=== PATIENT | female | born 1995 | race Hispanic/Latino ===

== ENCOUNTER 2019-04-10 17:18 | Emergency (ER) | payer OTHER ==
[~2019-04-10] VITALS: Ht 154.9 cm; Wt 70.8 kg
--- OUTSIDE RECORDS SUMMARY | 2019-04-10 17:21 | XMS REPORT ---
Author [facility] Address Unknown Phone Unavailable Care Team Providers Care Helpdesk Analyst Name Role Phone Unavailable Unavailable Payers Payer Name Policy Type Policy Number Effective Date Expiration Date Problems This patient has no known problems. Allergies, Adverse Reactions, Alerts Allergy Name Allergy Type Status Severity Reaction(s) Onset Date Inactive Date Treating Clinician Comments No Known Allergies DA Active U 2018-12-05 00:00:00 No Known Allergies DA Active U 2018-11-11 00:00:00 No Known Allergies DA Active U 2018-05-10 00:00:00 No Known Allergies DA Active U 2018-02-26 00:00:00 Medications This patient has no known medications. Results Test Description Test Time Test Comments Text Results Atomic Results Result Comments HCG SERUM BETA 2018-12-05 15:14:00 HCG SERUM BETA (test code=HCG) 85248.0 mIU/mL 0-3 Interfering substances present in the serum of somepatients may cause a false-positive result in this assay.Questionable elevations in serum hCG should be confirmedwith a urine hCG. Suspected Trophoblastic Neoplasms shouldnot be diagnosed based on serun hCG/beta hCG alone. Theymust be confirmed by clinical history and tissue diagnosis.INTERPRETATION:B-HCG LEVELS <5 SHOULD BE CONSIDERED "NEGATIVE." *WHEN BODERLINE RESULTS ARE ENCOUNTERED,PATIENT SAMPLESSHOULD BE REDRAWN 48 HOURS. 0-1 WEEKS AFTER CONCEPTION 5-50 MIU/ML1-2 WEEKS AFTER CONCEPTION 50-500 MIU/ML2-3 WEEKS AFTER CONCEPTION 100 -5,000 MIU/ML3-4 WEEKS AFTER CONCEPTION 500-10,000 MIU/ML4-5 WEEKS AFTER CONCEPTION 1000 -50,000 MIU/ML5-6 WEEKS AFTER CONCEPTION 10,000-100,000 MIU/ML6-8 WEEKS AFTER CONCEPTION 15,000- 200,000 MIU/ML2-3 MONTHS AFTER CONCEPTION 10,000-100,000 MIU/ML URINALYSIS [id number] 15:10:00* Test Item Value Reference Range Comments UA COLOR (test code=COLU) YELLOW YELLOW UA APPEARANCE (test code=APPU) CLEAR CLEAR UA GLUCOSE DIPSTICK (test code=DGLUU) NEGATIVE mg/dL NEGATIVE UA BILIRUBIN DIPSTICK (test code=BILU) NEGATIVE mg/dL NEGATIVE UA KETONE DIPSTICK (test code=KETU) >150 (4+) mg/dL NEGATIVE UA SPECIFIC GRAVITY (test code=SGU) 1.025 1.001-1.035 UA BLOOD DIPSTICK (test code=SALVADOR) Negative mg/dL NEGATIVE UA PH DIPSTICK (test code=BLAISE) 5.5 5.0-8.0 UA PROTEIN DIPSTICK (test code=PROU) NEGATIVE mg/dL NEGATIVE UA UROBILINIOGEN DIPSTICK (test code=URO) 2.0 (1+) mg/dL NEGATIVE UA NITRITE DIPSTICK (test code=KUNAL) NEGATIVE NEGATIVE UA LEUKOCYTE ESTERASE W REFLEX (test code=LEUUR) NEGATIVE Artur/uL NEGATIVE UA WBC (test code=WBCU) 0-5 per HPF 0-5 UA RBC (test code=RBCU) 0-2 #/HPF 0-5 UA EPITHELIAL CELLS (test code=EPIU) FEW per HPF FEW UA BACTERIA (test code=BACU) FEW #/HPF NONE UA MUCUS (test code=MUCU) FEW #/LPF FEW Urine Source? CatheterURINALYSIS [id number] 15:03:00* Test Item Value Reference Range Comments UA COLOR (test code=COLU) YELLOW YELLOW UA APPEARANCE (test code=APPU) CLEAR CLEAR UA GLUCOSE DIPSTICK (test code=DGLUU) NEGATIVE mg/dL NEGATIVE UA BILIRUBIN DIPSTICK (test code=BILU) NEGATIVE mg/dL NEGATIVE UA KETONE DIPSTICK (test code=KETU) >150 (4+) mg/dL NEGATIVE UA SPECIFIC GRAVITY (test code=SGU) 1.025 1.001-1.035 UA BLOOD DIPSTICK (test code=SALVADOR) Negative mg/dL NEGATIVE UA PH DIPSTICK (test code=BLAISE) 5.5 5.0-8.0 UA PROTEIN DIPSTICK (test code=PROU) NEGATIVE mg/dL NEGATIVE UA UROBILINIOGEN DIPSTICK (test code=URO) 2.0 (1+) mg/dL NEGATIVE UA NITRITE DIPSTICK (test code=KUNAL) NEGATIVE NEGATIVE UA LEUKOCYTE ESTERASE W REFLEX (test code=LEUUR) NEGATIVE Artur/uL NEGATIVE UA WBC (test code=WBCU) per HPF 0-5 UA RBC (test code=RBCU) per HPF 0-5 UA EPITHELIAL CELLS (test code=EPIU) per HPF Few UA BACTERIA (test code=BACU) per HPF NONE Urine Source? Catheter- US PREG AFTER [id number] 14:17:00 Name: JOSIAH ALEGRE [facility] : 1995 Age/S: 23 / F [address] Unit #: [id number] Loc: [place] [address] Phys: Cassandra Meyer B PROCESS DEVELOPMENT MANAGER Acct: [id number] Di s Date: Status: REG ER PHONE #: Exam Date: 12/05/2018 [facility] FAX #: Reason: VAGINAL BLEEDING/PELVIC PAIN EXAMS: CPT CODE: [id number] US PREG AFTER TRI 18912 HISTORY: Vaginal bleeding and pelvic pain. COMPARISON: Ultrasound from November 11, 2018. Transabdominal pelvic ultrasound: Survey of the uterus dem onstrated single live intrauterine gestation in variable position. Cardiac activity documented with average heart rate of 149 beats per minute. Posterior fundal, grade 0 placenta without previa or retroplacental hemorrhage. Cervical length of 3.5 cm. Normal amniotic fluid volume. Biometry: BPD=2.8 cm=15 week 0 day +/- 1 week. HC=10.5 cm=15 week 0 day +/- 1 week. AC=8.8 cm=15 week 0 day +/- 1 week. FL=1.6 cm=14 weeks 6 days +/- 1 week. CI=75.3. HC/AC=1.2. FL/HC=15.6. Using this criteria the gestation al age was calculated to 15 week 0 day +/- 1 week. EFW of 11 0 g or 4 ounces which is within the 44th percentile. BRUCE of Novemb 2015. BRUCE by previous ultrasound of June 01, 2019. detail is not available on this exam. IMPRESSION: Single live intrauterine gestation in variable position at 15 weeks 0 day +/- 1 week. Fetus has demonstrated appropriate interval growth from previous exam. BRUCE of May 29, 2019. EFW of 110 g or 4 ounces which is within the 44th percentile. Fundal posterior, grade 0 placenta without previa or retroplacental hemorrhage. Normal amniotic fluid volume. detail is not available. PAGE 1 Signed Report (CONTINUED) Name: JOSIAH ALEGRE [facility] : 1995 Age/S: 23 / F [address] Unit #: [id number] Loc: [place] [address] Phys: Jeovanny Meyer NP Acct: [id number] Dis Date: tus: REG ER PHONE #: [phone] Exam Date : 12/05/2018 1359 FAX #: [phone] Reason: VAGINAL BLEEDING/PELVIC PAIN EXAMS: CPT CODE: [id number] US PREG AFTER TRI [id number] <Continued> at 1417 Reported and signed by: Hawk Stone M.D. CC: Jeovanny Meyer NP; Liborio Duff DO Technologist: Radha العراقي RT(S), ELVIRA Trnilb Date/Time: 12/05/2018 (1417) [email or web address] Orig Print D/T: S: 12/05/2018 (4486) Probe: PAGE 2 Signed Report URINALYSIS [id number] 13:26:00* Test Item Value Reference Range Comments UA COLOR (test code=COLU) YELLOW YELLOW UA APPEARANCE (test code=APPU) Cloudy CLEAR UA GLUCOSE DIPSTICK (test code=DGLUU) NEGATIVE mg/dL NEGATIVE UA BILIRUBIN DIPSTICK (test code=BILU) NEGATIVE mg/dL NEGATIVE UA KETONE DIPSTICK (test code=KETU) 60 (2+) mg/dL NEGATIVE UA SPECIFIC GRAVITY (test code=SGU) 1.029 1.001-1.035 UA BLOOD DIPSTICK (test code=SALVADOR) Negative mg/dL NEGATIVE UA PH DIPSTICK (test code=BLAISE) 5.5 5.0-8.0 UA PROTEIN DIPSTICK (test code=PROU) 20 (Trace) mg/dL NEGATIVE UA UROBILINIOGEN DIPSTICK (test code=URO) Normal mg/dL NEGATIVE UA NITRITE DIPSTICK (test code=KUNAL) NEGATIVE NEGATIVE UA LEUKOCYTE ESTERASE W REFLEX (test code=LEUUR) 250 Artur/uL (2+) Artur/uL NEGATIVE UA WBC (test code=WBCU) 10-20 per HPF 0-5 UA RBC (test code=RBCU) 0-2 #/HPF 0-5 UA EPITHELIAL CELLS (test code=EPIU) MOD per HPF FEW UA BACTERIA (test code=BACU) FEW #/HPF NONE UA MUCUS (test code=MUCU) FEW #/LPF FEW Urine Source? Clean CatchBASIC METABOLIC [id number] 12:49:00* Test Item Value Reference Range Comments SODIUM (test code=NA) 138 mmol/L 136-145 POTASSIUM (test code=K) 3.6 mmol/L 3.5-5.1 CHLORIDE (test code=CL) 107.0 mmol/L 98-107 CARBON DIOXIDE (test code=CO2) 23.0 mmol/L 21-32 ANION GAP (test code=GAP) 11.6 10-20 GLUCOSE (test code=GLU) 84 mg/dL 74-106 BLOOD UREA NITROGEN (test code=BUN) 7 mg/dL 7-18 GLOMERULAR FILTRATION RATE (test code=GFR) > 60 mL/min >=60 Estimated GFR by using Modified MDRD formula.Chronic kidney disease is defined as either kidney damageor GFR <60 mL/min/1.73 m2 for >3 months. CREATININE (test code=CREAT) 0.50 mg/dL 0.55-1.02 Note change in reference range due to change in reagent. BUN/CREATININE RATIO (test code=BUN/CREA) 14.0 10-20 CALCIUM (test code=CA) 8.7 mg/dL 8.5-10.1 HEPATIC FUNCTION [id number] 12:49:00* Test Item Value Reference Range Comments TOTAL PROTEIN (test code=PROT) 7.2 gram/dL 6.4-8.2 ALBUMIN (test code=ALB) 3.2 g/dL 3.4-5.0 GLOBULIN (test code=GLOB) 4.0 gram/dL 2.7-4.2 ALBUMIN/GLOBULIN RATIO (test code=A/G) 0.8 0.75-1.50 BILIRUBIN TOTAL (test code=BILT) 0.60 mg/dL 0.0-1.0 BILIRUBIN DIRECT (test code=BILD) 0.15 mg/dL 0.0-0.20 SGOT/AST (test code=AST) 22 IUnit/L 15-37 SGPT/ALT (test code=ALT) 36 IUnit/L 12-78 ALKALINE PHOSPHATASE TOTAL (test code=ALKP) 62 IUnit/L 45-117 Note change in reference range due to change in reagent. [id number] 12:49:00* Test Item Value Reference Range Comments LIPASE (test code=LIP) 224 U/L 73.0-393.0 BASIC METABOLIC [id number] 12:40:00* Test Item Value Reference Range Comments SODIUM (test code=NA) 138 mmol/L 136-145 POTASSIUM (test code=K) 3.6 mmol/L 3.5-5.1 CHLORIDE (test code=CL) 107.0 mmol/L 98-107 CARBON DIOXIDE (test code=CO2) mmol/L 21-32 ANION GAP (test code=GAP) 10-20 GLUCOSE (test code=GLU) mg/dL 74-106 BLOOD UREA NITROGEN (test code=BUN) mg/dL 7-18 GLOMERULAR FILTRATION RATE (test code=GFR) mL/min >=60 CREATININE (test code=CREAT) mg/dL 0.55-1.02 BUN/CREATININE RATIO (test code=BUN/CREA) 10-20 CALCIUM (test code=CA) mg/dL 8.5-10.1 HEPATIC FUNCTION [id number] 12:40:00* Test Item Value Reference Range Comments TOTAL PROTEIN (test code=PROT) gram/dL 6.4-8.2 ALBUMIN (test code=ALB) g/dL 3.4-5.0 GLOBULIN (test code=GLOB) gram/dL 2.7-4.2 ALBUMIN/GLOBULIN RATIO (test code=A/G) 0.75-1.50 BILIRUBIN TOTAL (test code=BILT) mg/dL 0.0-1.0 BILIRUBIN DIRECT (test code=BILD) mg/dL 0.0-0.20 SGOT/AST (test code=AST) IUnit/L 15-37 SGPT/ALT (test code=ALT) IUnit/L 12-78 ALKALINE PHOSPHATASE TOTAL (test code=ALKP) IUnit/L 45-117 [id number] 12:40:00* Test Item Value Reference Range Comments LIPASE (test code=LIP) U/L 73.0-393.0 CBC W/O [id number] 12:36:00* Test Item Value Reference Range Comments WHITE BLOOD CELL (test code=WBC) 7.9 K/mm3 4.5-12.5 RED BLOOD CELL (test code=RBC) 4.37 mill/mm3 3.7-5.2 HEMOGLOBIN (test code=HGB) 13.2 gram/dL 11.5-15.5 HEMATOCRIT (test code=HCT) 39.7 % 36.0-46.0 MEAN CELL VOLUME (test code=MCV) 90.8 fL 80-98 MEAN CELL HGB (test code=MCH) 30.2 picogram 27.0-33.0 MEAN CELL HGB CONCETRATION (test code=MCHC) 33.2 gram/dL 33.0-36.0 RED CELL DISTRIBUTION WIDTH (test code=RDW) 13.2 % 11.6-16.2 PLATELET COUNT (test code=PLT) 160 K/mm3 150-450 MEAN PLATELET VOLUME (test code=MPV) 11.4 fL 6.7-11.0 CBC W/O [id number] 12:35:00* Test Item Value Reference Range Comments WHITE BLOOD CELL (test code=WBC) K/mm3 4.5-12.5 RED BLOOD CELL (test code=RBC) mill/mm3 3.7-5.2 HEMOGLOBIN (test code=HGB) 13.2 gram/dL 11.5-15.5 HEMATOCRIT (test code=HCT) 39.7 % 36.0-46.0 MEAN CELL VOLUME (test code=MCV) fL 80-98 MEAN CELL HGB (test code=MCH) picogram 27.0-33.0 MEAN CELL HGB CONCETRATION (test code=MCHC) gram/dL 33.0-36.0 RED CELL DISTRIBUTION WIDTH (test code=RDW) % 11.6-16.2 PLATELET COUNT (test code=PLT) K/mm3 150-450 MEAN PLATELET VOLUME (test code=MPV) fL 6.7-11.0 URINALYSIS [id number] 20:02:00* Test Item Value Reference Range Comments UA COLOR (test code=COLU) YELLOW YELLOW UA APPEARANCE (test code=APPU) CLEAR CLEAR UA GLUCOSE DIPSTICK (test code=DGLUU) NEGATIVE mg/dL NEGATIVE UA BILIRUBIN DIPSTICK (test code=BILU) NEGATIVE mg/dL NEGATIVE UA KETONE DIPSTICK (test code=KETU) >150 (4+) mg/dL NEGATIVE UA SPECIFIC GRAVITY (test code=SGU) 1.031 1.001-1.035 UA BLOOD DIPSTICK (test code=SALVADOR) 0.5 mg/dL (2+) mg/dL NEGATIVE UA PH DIPSTICK (test code=BLAISE) 5.5 5.0-8.0 UA PROTEIN DIPSTICK (test code=PROU) 30 (1+) mg/dL NEGATIVE UA UROBILINIOGEN DIPSTICK (test code=URO) Normal mg/dL NEGATIVE UA NITRITE DIPSTICK (test code=KUNAL) NEGATIVE NEGATIVE UA LEUKOCYTE ESTERASE W REFLEX (test code=LEUUR) NEGATIVE Artur/uL NEGATIVE UA WBC (test code=WBCU) 6-10 per HPF 0-5 UA RBC (test code=RBCU) 6-10 #/HPF 0-5 UA EPITHELIAL CELLS (test code=EPIU) FEW per HPF FEW UA BACTERIA (test code=BACU) FEW #/HPF NONE UA MUCUS (test code=MUCU) FEW #/LPF FEW Urine Source? Clean CatchURINALYSIS [id number] 20:01:00* Test Item Value Reference Range Comments UA COLOR (test code=COLU) YELLOW YELLOW UA APPEARANCE (test code=APPU) CLEAR CLEAR UA GLUCOSE DIPSTICK (test code=DGLUU) NEGATIVE mg/dL NEGATIVE UA BILIRUBIN DIPSTICK (test code=BILU) NEGATIVE mg/dL NEGATIVE UA KETONE DIPSTICK (test code=KETU) >150 (4+) mg/dL NEGATIVE UA SPECIFIC GRAVITY (test code=SGU) 1.031 1.001-1.035 UA BLOOD DIPSTICK (test code=SALVADOR) 0.5 mg/dL (2+) mg/dL NEGATIVE UA PH DIPSTICK (test code=BLAISE) 5.5 5.0-8.0 UA PROTEIN DIPSTICK (test code=PROU) 30 (1+) mg/dL NEGATIVE UA UROBILINIOGEN DIPSTICK (test code=URO) Normal mg/dL NEGATIVE UA NITRITE DIPSTICK (test code=KUNAL) NEGATIVE NEGATIVE UA LEUKOCYTE ESTERASE W REFLEX (test code=LEUUR) NEGATIVE Artur/uL NEGATIVE UA WBC (test code=WBCU) per HPF 0-5 UA RBC (test code=RBCU) per HPF 0-5 UA EPITHELIAL CELLS (test code=EPIU) per HPF Few UA BACTERIA (test code=BACU) per HPF NONE Urine Source? Clean Catch- DUP AB/PEL/SC [id number] 18:44:00 Name: JOSIAH ALEGRE [facility] : 1995 Age/S: 23 / F [address] Unit #: [id number] Loc: [place] [address] Phys: Linda Mace NP Acct: [id number] Di s Date: Status: REG ER PHONE #: Exam Date: 11/11/2018 1809 FAX #: [phone] Reason: PELVIC PAIN EXAMS: CPT CODE: [id number] DUP AB/PEL/SC COMP 36323 HISTORY: Vaginal bleeding and pelvic pain. COMPARISON: ultrasound from October 14, 2018. Transabdominal pelvic ultrasound with color Doppler flow and grayscale imaging. Anteverted uterus measured 11.3 x 7.3 x 9.6 cm. Intrauterine gestational sac with pole and cardiac activity documented at 160 beats per minutes. No subchorionic hemorrhage is visibl e. [place]-rump length of 4.4 cm=11 weeks 1 day +/- week. BRUCE of June 01, 2019. BRUCE by prior ultrasound of June 01 2019. Fetus has demonstrated appropriate interval growth from previous exam. Color and Doppler flow with normal spectral waveform laterally. R ight ovary measuring 2.4 x 1.9 x 2.1 cm. Left ovary measuring 3.2 x 2.1 x 1.7 cm with corpus luteum lesion measuring 1.8 cm. No free fluid. IMPRESSION: IUP at 11 weeks 1 day +/- week. Fetus has demonstrated appropriate interval growth from October 14, 2018. No sub chorionic hemorrhage. BRUCE of June 01, 2019. Normal ovaries with co laina Doppler flow. Electronically Signed by Leora Stone on 11/01 at 1844 Reported and signed by: Velma Anthony CC: Maria Dolores Mace NP Techn ologist: [facility] Date/Time : 11/11/2018 (1843) [email or web address] Orig Print D/T: S: 11/12/19 19 (1846) Probe: PAGE 1 Signed Report - US PREG 1ST [id number] 18:44:00 Name: JOSIAH ALEGRE [facility] : 1995 Age/S: 23 / F [address] Unit #: [id number] Loc: [place] [address] Phys: Linda Mace NP Acct: [id number] Di s Date: Status: REG ER PHONE #: Exam Date: 11/11/2018 1800 FAX #: Reason: VAGINAL BLEEDING/PELVIC PAIN EXAMS: CPT CODE: [id number] US PREG 1ST T RIMTR 11900 HISTORY: Vaginal bleeding and pelvic pain. COMPARISON: ultrasound from October 14, 2018. Transabdominal pelvic ultrasound with color Doppler flow and grayscale imaging. Anteverted uterus measured 11.3 x 7.3 x 9.6 cm. Intrauterine gestational sac with pole and cardiac activity documented at 160 beats per minutes. No subchorionic hemorrhage is visibl e. [place]-rump length of 4.4 cm=11 weeks 1 day +/- week. BRUCE of June 01, 2019. BRUCE by prior ultrasound of June 01 2019. Fetus has demonstrated appropriate interval growth from previous exam. Color and Doppler flow with normal spectral waveform laterally. R ight ovary measuring 2.4 x 1.9 x 2.1 cm. Left ovary measuring 3.2 x 2.1 x 1.7 cm with corpus luteum lesion measuring 1.8 cm. No free fluid. IMPRESSION: IUP at 11 weeks 1 day +/- week. Fetus has demonstrated appropriate interval growth from October 14, 2018. No sub chorionic hemorrhage. BRUCE of June 01, 2019. Normal ovaries with co laina Doppler flow. Electronically Signed by Leora Stone on 11/01 at 1844 Reported and signed by: Velma Anthony CC: Maria Dolores Mace NP Techn ologist: ESTEVAN JEFFERSON Trnscb Date/Time : 11/11/2018 (1843) [email or web address] Orig Print D/T: S: 11/12/19 19 (1846) Probe: PAGE 1 Signed Report BASIC METABOLIC [id number] 18:20:00* Test Item Value Reference Range Comments SODIUM (test code=NA) 137 mmol/L 136-145 POTASSIUM (test code=K) 3.2 mmol/L 3.5-5.1 CHLORIDE (test code=CL) 105.0 mmol/L 98-107 CARBON DIOXIDE (test code=CO2) 23.0 mmol/L 21-32 ANION GAP (test code=GAP) 12.2 10-20 GLUCOSE (test code=GLU) 86 mg/dL 74-106 BLOOD UREA NITROGEN (test code=BUN) 7 mg/dL 7-18 GLOMERULAR FILTRATION RATE (test code=GFR) > 60 mL/min >=60 Estimated GFR by using Modified MDRD formula.Chronic kidney disease is defined as either kidney damageor GFR <60 mL/min/1.73 m2 for >3 months. CREATININE (test code=CREAT) 0.40 mg/dL 0.55-1.02 Note change in reference range due to change in reagent. BUN/CREATININE RATIO (test code=BUN/CREA) 17.5 10-20 CALCIUM (test code=CA) 8.7 mg/dL 8.5-10.1 HCG SERUM [id number] 18:20:00* Test Item Value Reference Range Comments HCG SERUM BETA (test code=HCG) 05367.0 mIU/mL 0-3 Interfering substances present in the serum of somepatients may cause a false-positive result in this assay.Questionable elevations in serum hCG should be confirmedwith a urine hCG. Suspected Trophoblastic Neoplasms shouldnot be diagnosed based on serun hCG/beta hCG alone. Theymust be confirmed by clinical history and tissue diagnosis.INTERPRETATION:B-HCG LEVELS <5 SHOULD BE CONSIDERED "NEGATIVE." *WHEN BODERLINE RESULTS ARE ENCOUNTERED,PATIENT SAMPLESSHOULD BE REDRAWN 48 HOURS. 0-1 WEEKS AFTER CONCEPTION 5-50 MIU/ML1-2 WEEKS AFTER CONCEPTION 50-500 MIU/ML2-3 WEEKS AFTER CONCEPTION 100 -5,000 MIU/ML3-4 WEEKS AFTER CONCEPTION 500-10,000 MIU/ML4-5 WEEKS AFTER CONCEPTION 1000 -50,000 MIU/ML5-6 WEEKS AFTER CONCEPTION 10,000-100,000 MIU/ML6-8 WEEKS AFTER CONCEPTION 15,000- 200,000 MIU/ML2-3 MONTHS AFTER CONCEPTION 10,000-100,000 MIU/ML BASIC METABOLIC [id number] 17:56:00* Test Item Value Reference Range Comments SODIUM (test code=NA) 137 mmol/L 136-145 POTASSIUM (test code=K) 3.2 mmol/L 3.5-5.1 CHLORIDE (test code=CL) 105.0 mmol/L 98-107 CARBON DIOXIDE (test code=CO2) mmol/L 21-32 ANION GAP (test code=GAP) 10-20 GLUCOSE (test code=GLU) mg/dL 74-106 BLOOD UREA NITROGEN (test code=BUN) mg/dL 7-18 GLOMERULAR FILTRATION RATE (test code=GFR) mL/min >=60 CREATININE (test code=CREAT) mg/dL 0.55-1.02 BUN/CREATININE RATIO (test code=BUN/CREA) 10-20 CALCIUM (test code=CA) mg/dL 8.5-10.1 HCG SERUM [id number] 17:56:00* Test Item Value Reference Range Comments HCG SERUM BETA (test code=HCG) mIU/mL 0-3 CBC W/O [id number] 17:44:00* Test Item Value Reference Range Comments WHITE BLOOD CELL (test code=WBC) K/mm3 4.5-12.5 RED BLOOD CELL (test code=RBC) mill/mm3 3.7-5.2 HEMOGLOBIN (test code=HGB) 13.1 gram/dL 11.5-15.5 HEMATOCRIT (test code=HCT) 38.9 % 36.0-46.0 MEAN CELL VOLUME (test code=MCV) fL 80-98 MEAN CELL HGB (test code=MCH) picogram 27.0-33.0 MEAN CELL HGB CONCETRATION (test code=MCHC) gram/dL 33.0-36.0 RED CELL DISTRIBUTION WIDTH (test code=RDW) % 11.6-16.2 PLATELET COUNT (test code=PLT) K/mm3 150-450 MEAN PLATELET VOLUME (test code=MPV) fL 6.7-11.0 CBC W/O [id number] 17:44:00* Test Item Value Reference Range Comments WHITE BLOOD CELL (test code=WBC) 11.0 K/mm3 4.5-12.5 RED BLOOD CELL (test code=RBC) 4.39 mill/mm3 3.7-5.2 HEMOGLOBIN (test code=HGB) 13.1 gram/dL 11.5-15.5 HEMATOCRIT (test code=HCT) 38.9 % 36.0-46.0 MEAN CELL VOLUME (test code=MCV) 88.6 fL 80-98 MEAN CELL HGB (test code=MCH) 29.8 picogram 27.0-33.0 MEAN CELL HGB CONCETRATION (test code=MCHC) 33.7 gram/dL 33.0-36.0 RED CELL DISTRIBUTION WIDTH (test code=RDW) 12.5 % 11.6-16.2 PLATELET COUNT (test code=PLT) 242 K/mm3 150-450 MEAN PLATELET VOLUME (test code=MPV) 11.5 fL 6.7-11.0 - ABDOMEN [id number] 15:59:00 Name: CODEYJOSIAH HAILEY [facility] : 1995 Age/S: 23 / F [address] [place] [address] Unit #: [id number] Loc: [place] [address] Phys: Gary Moreno JOHN Acct: [id number] Dis Date: Status: REG ER PHONE #: [phone] Exam Date: 10/26/2018 1534 FAX #: [phone] Reason: abdominal pain, vomiting, history of cholelithi EXAMS: CPT CODE: [id number] ABDOMEN LTD 21733 PROCEDURE: RIGHT UPPER QUADRANT ULTRASOUND INDICATION: abdominal pain, vomiting, history of cholelithiasis 23-year-old female, 9 weeks COMPARISON: May 2018 TECHNIQUE: Sonographic evaluation of the right upper quadrant was performed with supplemental color and pulsed Doppler. Limitations: Bowel gas shadowing. FINDINGS: LIVER: The liver is diffusely increased in echogenicity with slight coarsened echotexture. Nonmasslike areas of decreased echogenicity adjacent to the gallbladder fossa compatible with focal sparing. Small circumscribed relatively hypoechoic focus in the anterior right lobe measuring 1.9 x 1.7 x 1.5 cm. No internal vascularity. Lesion size and appearance grossly stable from prior examination within limitations of this muck operator dependent exam. H epatopedal flow in the main portal vein. GALLBLADDER: Multip le shadowing gallstones within contracted gallbladder. Contracted state p recluding accurate assessment of wall thickness. No gross pericholecystic fluid. No tenderness to transducer pressure. BILE DUCTS: No biliary dilatation. The common duct measures 4 mm. PANCREAS: Th e visualized pancreas appears normal. RIGHT KIDNEY: The right kidn ey measures 10.6 cm in length. Normal renal contour and morphology with no rmal echogenicity. There is no hydronephrosis. Additional co mments: No free intraperitoneal fluid. IMPRESSION: 1. Cholelithiasis within contracted gallbladder. No definitive sonographic evidence for acute cholecystitis. 2. Hepatic steatosis with areas of f ocal sparing. 3. Small right lobe liver lesion mildly hypoechoic in a b ackground of hepatic steatosis. Stability and age of the patient favori ng benign lesion, likely hemangioma. If not previously performed, [facility] imaging options would include nonemergent MRI after completion of the patient's . PAGE 1 Signed Report (CONTINUED) Name: CODEYJOSIAH [facility] : 1995 Age/S: 23 / F [address] [facility] Unit #: [id number] Loc: ELIZABETH Hernandez [address] Phys: Gary Moreno Acct: [id number] Dis Date: Status: REG ER PHONE #: [phone] Exam Date: 10/26/2018 1534 FAX #: [phone] Reason: abdominal pain, vomiting, history of cholelithi EXAMS: CPT CODE: [id number] US ABDOMEN LTD [id number] < Continued> SL: [id number] at 1559 Reported and signed by: Chavo Jimenez M.D. CC: Gary LOPEZ; Baltazar Ochoa MD Technologist: Noy Horton RDMS (AB) (OB) Trnscb Date/Time: 10/26/2018 (6916) [email or web address] Orig Print D/T: S: 10/26/2018 (8247) Probe: PAGE 2 Signed Report BASIC METABOLIC [id number] 14:57:00* Test Item Value Reference Range Comments SODIUM (test code=NA) 138 mEq/L 134-147 POTASSIUM (test code=K) 3.8 mEq/L 3.4-5.0 CHLORIDE (test code=CL) 108 mEq/L 100-108 CARBON DIOXIDE (test code=CO2) 24 mEq/L 21-33 ANION GAP (test code=GAP) 10 0-20 GLUCOSE (test code=GLU) 80 mg/dL 70-110 BLOOD UREA NITROGEN (test code=BUN) 7 mg/dL 7-18 GLOMERULAR FILTRATION RATE (test code=GFR) 154.3 110-120 Units of measure=ml/min/1.73 m2 CREATININE (test code=CREAT) 0.5 mg/dL 0.6-1.3 CALCIUM (test code=CA) 8.7 mg/dL 8.0-10.5 Is patient ? YHOW MANY WEEKS? 9 WEEKSHEPATIC FUNCTION [id number] 14:57:00* Test Item Value Reference Range Comments TOTAL PROTEIN (test code=PROT) 7.3 g/dL 6.4-8.2 ALBUMIN (test code=ALB) 3.30 g/dL 3.4-5.0 BILIRUBIN TOTAL (test code=BILT) 0.30 mg/dL 0.0-1.0 BILIRUBIN DIRECT (test code=BILD) < 0.10 MG/DL 0.0-0.30 BILIRUBIN INDIRECT (test code=BILIND) 0.20 MG/DL SGOT/AST (test code=AST) 39 IUnit/L 15-37 SGPT/ALT (test code=ALT) 90 IUnit/L 15-65 ALKALINE PHOSPHATASE TOTAL (test code=ALKP) 64 IUnit/L 20-125 Is patient ? YHOW MANY WEEKS? 9 [id number] 14:57:00* Test Item Value Reference Range Comments LIPASE (test code=LIP) 212 IUnit/L 73-393 Is patient ? YHOW MANY WEEKS? 9 WEEKSHCG [id number] 14:57:00* Test Item Value Reference Range Comments HCG SERUM (test code=HCG) 62821 0 - 6 NOT > 6 SUGGESTIVE OF EARLY RISES TWO FOLD EVERY 2 DAYS; SUGGEST RE CONFIRMING AFTER 2 DAYS. 150,000-200,[address] TRIMESTER 10,000 - 50,000 2ND & 3RD TRIMESTERResults in dany-International Units/mL Is patient ? YHOW MANY WEEKS? 9 WEEKSPROTHROMBIN [id number] 14:42:00 * Test Item Value Reference Range Comments PROTHROMBIN TIME PATIENT (test code=PTP) 11.9 SECONDS 9.3-12.9 INTERNATIONAL NORMAL RATIO (test code=INR) 1.1 0.8-1.2 TARGET INR BY INDICATION Indication INR1. Prophylaxis of venous thrombosis 2.0 - 3.0 (orthopedic surgery), Prophylaxis of venous thrombosis (other than high-risk surgery), Treatment of Deep Vein Thrombosis/Pulmonary Embolism, Prevention of systemic embolism - Tissue heart valves, Acute Myocardial Infarction (to prevent systemic embolism), Valvular heart disease, Atrial Fibrillation, Bileaflet mechanical valve in aortic position.2. Mechanical prosthetic valves (high risk), 2.5 - 3.5 Presence of Lupus Anticoagulant or Antiphospholipid Antibodies, Prevention of systemic embolism - Acute Myocardial Infarction (to prevent recurrent infarct). THROMBOPLASTIN TIME [id number] 14:42:00* Test Item Value Reference Range Comments THROMBOPLASTIN TIME PARTIAL (test code=PTT) 29.8 Seconds 25.0-39.5 Therapeutic Range: 50.4 - 88.3 Seconds Effective 10/17/2018 BASIC METABOLIC [id number] 14:41:00* Test Item Value Reference Range Comments SODIUM (test code=NA) 138 mEq/L 134-147 POTASSIUM (test code=K) 3.8 mEq/L 3.4-5.0 CHLORIDE (test code=CL) 108 mEq/L 100-108 CARBON DIOXIDE (test code=CO2) 24 mEq/L 21-33 ANION GAP (test code=GAP) 10 0-20 GLUCOSE (test code=GLU) 80 mg/dL 70-110 BLOOD UREA NITROGEN (test code=BUN) 7 mg/dL 7-18 GLOMERULAR FILTRATION RATE (test code=GFR) 154.3 110-120 Units of measure=ml/min/1.73 m2 CREATININE (test code=CREAT) 0.5 mg/dL 0.6-1.3 CALCIUM (test code=CA) 8.7 mg/dL 8.0-10.5 Is patient ? YHOW MANY WEEKS? 9 HEPATIC FUNCTION [id number] 14:41:00* Test Item Value Reference Range Comments TOTAL PROTEIN (test code=PROT) g/dL 6.4-8.2 ALBUMIN (test code=ALB) 3.30 g/dL 3.4-5.0 BILIRUBIN TOTAL (test code=BILT) mg/dL 0.0-1.0 BILIRUBIN DIRECT (test code=BILD) < 0.10 MG/DL 0.0-0.30 SGOT/AST (test code=AST) IUnit/L 15-37 SGPT/ALT (test code=ALT) 90 IUnit/L 15-65 ALKALINE PHOSPHATASE TOTAL (test code=ALKP) IUnit/L 20-125 Is patient ? YHOW MANY WEEKS? 9 [id number] 14:41:00* Test Item Value Reference Range Comments LIPASE (test code=LIP) 212 IUnit/L 73-393 Is patient ? YHOW MANY WEEKS? 9 WEEKSHCG [id number] 14:41:00* Test Item Value Reference Range Comments HCG SERUM (test code=HCG) Is patient ? YHOW MANY WEEKS? 9 WEEKSURINALYSIS [id number] 14:28:00* Test Item Value Reference Range Comments UA COLOR (test code=COLU) YELLOW YEL/STRAW UA APPEARANCE (test code=APPU) CLEAR CLEAR UA GLUCOSE DIPSTICK (test code=DGLUU) NEGATIVE NEGATIVE UA BILIRUBIN DIPSTICK (test code=BILU) NEGATIVE NEGATIVE UA KETONE DIPSTICK (test code=KETU) NEGATIVE NEGATIVE UA SPECIFIC GRAVITY (test code=SGU) 1.024 1.005-1.030 UA BLOOD DIPSTICK (test code=SALVADOR) NEGATIVE NEGATIVE UA PH DIPSTICK (test code=BLAISE) 8.0 5.0-7.0 UA PROTEIN DIPSTICK (test code=PROU) NEGATIVE NEGATIVE UA UROBILINIOGEN DIPSTICK (test code=URO) 2.0 mg/dL 0.2-1.0 UA NITRITE DIPSTICK (test code=KUNAL) NEGATIVE NEGATIVE UA LEUKOCYTE ESTERASE DIPSTICK (test code=LEUU) NEGATIVE NEGATIVE UA WBC (test code=WBCU) 0-3 WBC/HPF 0-3 UA RBC (test code=RBCU) 4-10 RBC/HPF 0-3 UA BACTERIA (test code=BACU) NONE SEEN /HPF NONE SEEN UA SQUAMOUS CELLS (test code=SQU) 0-5 /HPF NONE SEEN UA MUCUS (test code=MUCU) 2+ /LPF NONE SEEN COMMENTS: Clean CatchCBC W/AUTO [id number] 14:26:00* Test Item Value Reference Range Comments WHITE BLOOD CELL (test code=WBC) 9.24 x10 3/uL 4.5-11.0 RED BLOOD CELL (test code=RBC) 4.39 x10 6/uL 3.54-5.02 HEMOGLOBIN (test code=HGB) 13.1 g/dL 11.0-15.0 HEMATOCRIT (test code=HCT) 38.8 % 33.0-45.0 MEAN CELL VOLUME (test code=MCV) 88.4 fL 81.0-99.0 MEAN CELL HGB (test code=MCH) 29.8 pg 27.0-33.0 MEAN CELL HGB CONCETRATION (test code=MCHC) 33.8 g/dL 33.0-37.0 RED CELL DISTRIBUTION WIDTH CV (test code=RDW) 12.7 % 11.5-14.5 RED CELL DISTRIBUTION WIDTH SD (test code=RDW-SD) 41.0 fL 37.0-54.0 PLATELET COUNT (test code=PLT) 250 x10 3/uL 150-400 MEAN PLATELET VOLUME (test code=MPV) 11.8 fL 7.0-9.0 NEUTROPHIL % (test code=NT%) 69.8 % 56.0-77.0 IMMATURE GRANULOCYTE % (test code=IG%) 0.9 % 0.0-2.0 LYMPHOCYTE % (test code=LY%) 19.2 % 14.0-32.0 MONOCYTE % (test code=MO%) 8.9 % 4.8-9.0 EOSINOPHIL % (test code=EO%) 0.8 % 0.3-3.7 BASOPHIL % (test code=BA%) 0.4 % 0.0-2.0 NUCLEATED RBC % (test code=NRBC%) 0.0 % 0-0 NEUTROPHIL # (test code=NT#) 6.46 x10 3/uL 2.0-7.6 IMMATURE GRANULOCYTE # (test code=IG#) 0.08 x10 3/uL 0.00-0.03 LYMPHOCYTE # (test code=LY#) 1.77 x10 3/uL 1.0-3.8 MONOCYTE # (test code=MO#) 0.82 x10 3/uL 0.1-0.8 EOSINOPHIL # (test code=EO#) 0.07 x10 3/uL 0.0-0.2 BASOPHIL # (test code=BA#) 0.04 x10 3/uL 0.0-0.2 NUCLEATED RBC # (test code=NRBC#) 0.00 x10 3/uL 0.0-0.1 MANUAL DIFF REQUIRED (test code=MDIFF) NO - US PREG UT [id number] 03:18:00 Name: JOSIAH ALEGRE [facility] : 1995 Age/S: 23 / F [address] [place] [address] Unit #: [id number] Loc: ELIZABETH Hernandez [address] Phys: EDDOC GENERIC FOR EDM Acct: [id number] Dis Date: Status: REG ER PHONE #: [phone] Exam Date: 10/14/2018 023 FAX #: [phone] Reason: PELVIC PAIN EXAMS: CPT CODE: [id number] US PREG UT TRANSVAGINAL 75030 EXAM; US, US PREG 1ST TRIMTR: 10/14/2018, 0 to 12 hours EXAM; US, US PREG UT TRANSVAGINAL: 10/14/2018, 0 to 12 hours Clinical Indication: Pelvic pain. Cramping. 7 week . Comparison: None. TECHNIQUE: Technique: Grayscale, color and Doppler transabdominal and transvaginal imaging of the pelvis was performed with standard technique. FINDINGS: Transabdominal pelvic ultrasound shows anteverted uterus. Uterus measures 10.3 x 7.2 x 8.4 cm. Intrauterine gestation is identified. For better visualization of intrauterine gestation and adnexa, endovaginal pelvic ultrasound is performed. En dovaginal pelvic ultrasound: UTERUS: An intrauterine gestation sac is iden tified containing pole and yolk sac. Gestational age is 7 weeks 1 d ay by CRL length of 0.99 cm. Yolk sac measures 0.33 cm heart rate i s 144 bpm. Sonographic BRUCE is 06/01/2019. Gestational age by LMP is 7 weeks 3 days and BRUCE by LMP is 05/30/2019. A small hypoechoic area adj acent to the gestational sac measuring 3.3 x 1.7 x 3.1 cm most likely subc horionic bleed. OVARIES: RIGHT: 2.6 x 1.6 x 1.6 cm. LEFT: 3.6 x 2.1 x 2.4 cm. A 2.0 x 1.3 x 1.7 cm hypoechoic area in the left ovary may represent corpus luteum cyst. There are no adnexal m asses. The limited Doppler images show normal bilateral ov khurram blood flow. OTHER FINDINGS: No free fluid in the pel jimenez cul-de-sac. PAGE 1 Signed Report (CONTINUED) Name: JOSIAH ALEGRE [facility] : 1995 Age/S: 23 / F [address] Unit #: [id number] Loc: ELIZABETH Hernandez [address] Phys: EDDOC GENERIC FOR EDM Acct: [id number] Dis Date: Status: REG ER PHONE #: [phone] Exam Date: 10/14/2018232 FAX #: [phone] Reason: PELVIC PAIN EXAMS: CPT CODE: [id number] US PREG UT TRANSVAGINAL 05434 < Continued> If there is further concern, followup pelvic sonography or MRI of the pelvis may be performed. IMPRESSION: 1. Single live intrauterine gestation at 7 weeks 3 days. heart rate at 1 44 bpm. 2. Subchorionic bleed. 3. Corpus luteum cyst in the left ovary. SL: JSYED-H at 0318 Reported and signed by: Xavi Dewey M.D. CC: Technologist: Rachel Garrison RDMS([place]) Trnscb Date/Time: 10/14/2018 (317) t.[email or web address] Orig Print D/T: S: 10/14/2018 (320) Probe: [id number] PAGE 2 Signed Report - US PREG 1ST [id number] 03:18:00 Name: JOSIAH ALEGRE [facility] : 1995 Age/S: 23 / F [address] [place] [address] Unit #: [id number] Loc: [place] [address] Phys: Taylor Godfrey NP Acct: [id number] Dis Date: Status: REG ER PHONE #: [phone] Exam Date: 10/14/2018232 FAX #: [phone] Reason: Pelvic Pain EXAMS: CPT CODE: [id number] US PREG 1ST TRIMTR [id number] EXAM; US, US PREG 1ST TRIMTR: 10/14/2018, 0 to 12 hours EXAM; US, US PREG UT TRANSVAGINAL: 10/14/2018, 0 to 12 hours Clinical Indication: Pelvic pain. Cramping. 7 week . Comparison: None. TECHNIQUE: Technique: Grayscale, color and Doppler transabdominal and transvaginal imaging of the pelvis was performed with standard techni que. FINDINGS: Transabdominal pelvic ultrasound shows antev erted uterus. Uterus measures 10.3 x 7.2 x 8.4 cm. Intrauterine gestatio n is identified. For better visualization of intrauterine gestatio n and adnexa, endovaginal pelvic ultrasound is performed. En dovaginal pelvic ultrasound: UTERUS: An intrauterine gestation sac is iden tified containing pole and yolk sac. Gestational age is 7 weeks 1 d ay by CRL length of 0.99 cm. Yolk sac measures 0.33 cm heart rate i s 144 bpm. Sonographic BRUCE is 06/01/2019. Gestational age by LMP is 7 weeks 3 days and BRUCE by LMP is 05/30/2019. A small hypoechoic area adj acent to the gestational sac measuring 3.3 x 1.7 x 3.1 cm most likely subc horionic bleed. OVARIES: RIGHT: 2.6 x 1.6 x 1.6 cm. LEFT: 3.6 x 2.1 x 2.4 cm. A 2.0 x 1.3 x 1.7 cm hypoechoic area in the left ovary may represent corpus luteum cyst. There are no adnexal m asses. The limited Doppler images show normal bilateral ov khurram blood flow. OTHER FINDINGS: No free fluid in the pel jimenez cul-de-sac. PAGE 1 Signed Report (CONTINUED) Name: JOSIAH ALEGRE [facility] : 1995 Age/S: 23 / F [address] Unit #: [id number] Loc: [place] [address] Phys: Taylor Godfrey NP Acct: [id number] Dis Date: Status: REG ER PHONE #: [phone] Exam Date: 10/14/2018 023 FAX #: [phone] Reason: Pelvic Pain EXAMS: CPT CODE: [id number] US PREG 1ST TRIMTR 02246 < Continued> If there is further concern, followup pelvic sonography or MRI of the pelvis may be performed. IMPRESSION: 1. Single live intrauterine gestation at 7 weeks 3 days. heart rate at 1 44 bpm. 2. Subchorionic bleed. 3. Corpus luteum cyst in the left ovary. SL: JSYED-H at 0318 Reported and signed by: Xavi Dewey M.D. CC: Taylor Godfrey NP Technologist: Rachel Garrison RDMS([place]) Trnscb Date/Time: 10/14/2018 (317) [id number] Orig Print D/T: S: 10/14/2018 (320) Probe: PAGE 2 Signed Report HCG [id number] 01:54:00* Test Item Value Reference Range Comments HCG SERUM (test code=HCG) 36622 0 - 6 NOT > 6 SUGGESTIVE OF EARLY RISES TWO FOLD EVERY 2 DAYS; SUGGEST RE CONFIRMING AFTER 2 DAYS. 150,000-200,[address]IME[address] 10,000 - 50,000 2ND & 3RD TRIMESTERResults in dany-International Units/mL Is patient ? YHOW MANY WEEKS? 7 WEEKSURINALYSIS [id number] 01:25:00* Test Item Value Reference Range Comments UA COLOR (test code=COLU) YELLOW YEL/STRAW UA APPEARANCE (test code=APPU) CLEAR CLEAR UA GLUCOSE DIPSTICK (test code=DGLUU) NEGATIVE NEGATIVE UA BILIRUBIN DIPSTICK (test code=BILU) NEGATIVE NEGATIVE UA KETONE DIPSTICK (test code=KETU) NEGATIVE NEGATIVE UA SPECIFIC GRAVITY (test code=SGU) 1.023 1.005-1.030 UA BLOOD DIPSTICK (test code=SALVADOR) NEGATIVE NEGATIVE UA PH DIPSTICK (test code=BLAISE) 5.0 5.0-7.0 UA PROTEIN DIPSTICK (test code=PROU) NEGATIVE NEGATIVE UA UROBILINIOGEN DIPSTICK (test code=URO) 0.2 mg/dL 0.2-1.0 UA NITRITE DIPSTICK (test code=KUNAL) NEGATIVE NEGATIVE UA LEUKOCYTE ESTERASE DIPSTICK (test code=LEUU) NEGATIVE NEGATIVE UA WBC (test code=WBCU) 0-3 WBC/HPF 0-3 UA RBC (test code=RBCU) 0-3 RBC/HPF 0-3 UA BACTERIA (test code=BACU) TRACE /HPF NONE SEEN UA SQUAMOUS CELLS (test code=SQU) 0-5 /HPF NONE SEEN UA MUCUS (test code=MUCU) 4+ /LPF NONE SEEN COMMENTS: Clean CatchCBC W/AUTO [id number] 01:23:00* Test Item Value Reference Range Comments WHITE BLOOD CELL (test code=WBC) 9.35 x10 3/uL 4.5-11.0 RED BLOOD CELL (test code=RBC) 4.31 x10 6/uL 3.54-5.02 HEMOGLOBIN (test code=HGB) 12.9 g/dL 11.0-15.0 HEMATOCRIT (test code=HCT) 38.6 % 33.0-45.0 MEAN CELL VOLUME (test code=MCV) 89.6 fL 81.0-99.0 MEAN CELL HGB (test code=MCH) 29.9 pg 27.0-33.0 MEAN CELL HGB CONCETRATION (test code=MCHC) 33.4 g/dL 33.0-37.0 RED CELL DISTRIBUTION WIDTH CV (test code=RDW) 12.8 % 11.5-14.5 RED CELL DISTRIBUTION WIDTH SD (test code=RDW-SD) 42.0 fL 37.0-54.0 PLATELET COUNT (test code=PLT) 242 x10 3/uL 150-400 MEAN PLATELET VOLUME (test code=MPV) 11.5 fL 7.0-9.0 NEUTROPHIL % (test code=NT%) 68.1 % 56.0-77.0 IMMATURE GRANULOCYTE % (test code=IG%) 0.9 % 0.0-2.0 LYMPHOCYTE % (test code=LY%) 22.9 % 14.0-32.0 MONOCYTE % (test code=MO%) 7.1 % 4.8-9.0 EOSINOPHIL % (test code=EO%) 0.7 % 0.3-3.7 BASOPHIL % (test code=BA%) 0.3 % 0.0-2.0 NUCLEATED RBC % (test code=NRBC%) 0.0 % 0-0 NEUTROPHIL # (test code=NT#) 6.37 x10 3/uL 2.0-7.6 IMMATURE GRANULOCYTE # (test code=IG#) 0.08 x10 3/uL 0.00-0.03 LYMPHOCYTE # (test code=LY#) 2.14 x10 3/uL 1.0-3.8 MONOCYTE # (test code=MO#) 0.66 x10 3/uL 0.1-0.8 EOSINOPHIL # (test code=EO#) 0.07 x10 3/uL 0.0-0.2 BASOPHIL # (test code=BA#) 0.03 x10 3/uL 0.0-0.2 NUCLEATED RBC # (test code=NRBC#) 0.00 x10 3/uL 0.0-0.1 MANUAL DIFF REQUIRED (test code=MDIFF) NO CHEMISTRY 8 [id number] 01:06:00* Test Item Value Reference Range Comments ISTAT-SODIUM (test code=NAP) MMOL/L 134-147 ISTAT-POTASSIUM (test code=KP) MMOL/L 3.4-5.0 ISTAT-CHLORIDE (test code=CLP) MMOL/L 100-108 ISTAT CARBON DIOXIDE (test code=ISTAT-CO2) mmol/L 21-33 ISTAT CALCIUM IONIZED (test code=ISTAT-JESUSITA) MG/DL 1.12-1.32 ISTAT-GLUCOSE (test code=GLUP) MG/DL 70-110 ISTAT-BUN (test code=BUNP) MG/DL 7-18 BEDSIDE CREATININE (test code=CREATBED) MG/DL 0.6-1.3 GLOMERULAR FILTRATION RATE POC (test code=GFRBED) 212 ML/MIN CHEMISTRY 8 [id number] 01:06:00* Test Item Value Reference Range Comments ISTAT-SODIUM (test code=NAP) 138 MMOL/L 134-147 ISTAT-POTASSIUM (test code=KP) 3.9 MMOL/L 3.4-5.0 ISTAT-CHLORIDE (test code=CLP) 104 MMOL/L 100-108 Performed by certified muck operator at [facility] ISTAT CARBON DIOXIDE (test code=ISTAT-CO2) 23.0 mmol/L 21-33 ISTAT CALCIUM IONIZED (test code=ISTAT-JESUSITA) 1.14 MG/DL 1.12-1.32 ISTAT-GLUCOSE (test code=GLUP) 94 MG/DL 70-110 ISTAT-BUN (test code=BUNP) 8 MG/DL 7-18 BEDSIDE CREATININE (test code=CREATBED) 0.4 MG/DL 0.6-1.3 GLOMERULAR FILTRATION RATE POC (test code=GFRBED) 212 ML/MIN
[2019-04-10 18:08] LABS: BILIRUBIN,URINE NEGATIVE (NEGATIVE); CLARITY,URINE SL CLOUDY (CLEAR); COLOR,URINE YELLOW (YELLOW); KETONES,URINE TRACE (NEGATIVE); LEUKOCYTE ESTERASE ,URINE TRACE (NEGATIVE); NITRITE,URINE NEGATIVE (NEGATIVE); PROTEIN,URINE DIPSTICK 2+ (NEGATIVE); URINE UROBILINOGEN 0.2 mg/dL (0.2 - 1)
[2019-04-10 18:19] LABS: AMORPHOUS SEDIMENT,URINE MODERATE (FEW); BACTERIA,URINE MANY /HPF; EPITHELIAL CELLS,URINE MANY /LPF; TRANSITIONAL EPI CELLS,URINE MODERATE
[2019-04-10 18:23] VITALS: BP 107/70
[2019-04-10] MEDS ORDERED: MACROBID 100 M100 MG PO (18:27)
== END 2019-04-10 18:31 | disposition home or self-care (01) ==
LOC: ER 17:18
DX: H81.13 Benign paroxysmal vertigo, bilateral (principal); N30.91 Cystitis, unspecified with hematuria
CPT/HCPCS: 36415; 81001; 82948; 99283

== ENCOUNTER → 2019-06-19 | Outpatient (CLI) | payer OTHER ==
[~2019-06-19] MED LIST: IOPAMIDOL 370 MG/ML 200 ML INFUS..BTL INJ ONE; MACROBID 100 M100 MG PO; SODIUM CHLORIDE 0.9% 50ML 50 ML ONE
--- NOTE | 2019-06-19 10:32 | Diagnostic Imaging Report ---
CT of the abdomen and pelvis, with contrast. History: Abdominal pain. Comparison: None available. Technique: Multidetector CT scanning of the abdomen and pelvis was performed from the level of the lung bases to the inferior pubic rami after intravenous contrast material only. Coronal and sagittal multiplanar reformations were obtained. RADIATION DOSE: Total DLP: 402.07 mGy*cm Dose modulation, iterative reconstruction, and/or weight based adjustment of the mA/kV was utilized to reduce the radiation dose to as low as reasonably achievable. FINDINGS: The visualized lungs are clear. The imaged portion of the heart demonstrates no significant abnormalities. The liver is normal in size and attenuation without evidence for focal abnormality. A small calcified gallstone as well as cholesterol stone is identified within the gallbladder. There is no evidence for gallbladder distention, wall thickening, or pericholecystic fluid. There is no intra or extrahepatic biliary ductal dilatation. The stomach, spleen, pancreas, and bilateral adrenal glands demonstrate no significant abnormalities. The kidneys are normal in size and location and enhance symmetrically. There is no evidence for hydronephrosis or ureteral dilatation. The urinary bladder demonstrates no significant abnormalities. The uterus is heterogeneous and contains a small amount of endometrial fluid, likely physiologic in this premenopausal patient. No abnormal adnexal masses are identified. The abdominal aorta is normal course and caliber. The IVC is unremarkable. Please note evaluation the bowel is limited without the use of enteric contrast material. The visualized loops of small and large bowel demonstrate no evidence of obstruction or inflammation. A suspected appendix is best appreciated on sagittal reformats and appears unremarkable. There is no ascites or intraperitoneal free air. Scattered normal sized mesenteric lymph nodes are noted. There is no abnormal lymph node enlargement within the abdomen or pelvis. A tiny fat-containing umbilical hernia is noted. The osseous structures demonstrate no evidence for acute fracture or destructive process. The extraperineal soft tissues are unremarkable. IMPRESSION: Cholelithiasis without CT evidence for acute cholecystitis. No other acute abdominopelvic process identified. Signed by: Dr. Wolfgang Torrez MD on 06/19/2019 10:28 AM
== END ==
LOC: CT 08:51
PROVIDERS: ATTEND Internal Medicine Gastroenterology
DX: R10.30 Lower abdominal pain, unspecified (principal)
CPT/HCPCS: 74177; Q9967